=== PATIENT | female | born 1945 | race Caucasian/White ===

== ENCOUNTER → 2016-10-01 | Outpatient (CLI) | payer OTHER | END | disposition home or self-care (01) | LOC: RAD 16:19 | DX: M19.041 Primary osteoarthritis, right hand (principal); M86.8X8 Other osteomyelitis, other site; M25.571 Pain in right ankle and joints of right foot; M25.471 Effusion, right ankle ==

== ENCOUNTER → 2016-10-15 | Outpatient (CLI) | payer OTHER ==
[2016-10-15 13:58] LABS: URINE TP/CRE RATIO 0.4 (<0.21)
== END | disposition home or self-care (01) ==
LOC: US 10:30 → LAB 10:56 → US 10:56
PROVIDERS: Nurse Practitioner Family
DX: I12.9 Hypertensive chronic kidney disease with stage 1 through stage 4 chronic kidney disease, or unspecified chronic kidney disease (principal); E11.22 Type 2 diabetes mellitus with diabetic chronic kidney disease; E11.69 Type 2 diabetes mellitus with other specified complication; N18.3 Chronic kidney disease, stage 3 (moderate); M86.141 Other acute osteomyelitis, right hand; L03.019 Cellulitis of unspecified finger; R80.9 Proteinuria, unspecified; I71.4 Abdominal aortic aneurysm, without rupture; R05 Cough

== ENCOUNTER → 2016-11-01 | Outpatient (CLI) | payer OTHER | END | disposition home or self-care (01) | LOC: MAMMO 11:42 | DX: Z12.31 Encounter for screening mammogram for malignant neoplasm of breast (principal) ==

== ENCOUNTER → 2016-12-12 | Outpatient (CLI) | payer OTHER | END | disposition home or self-care (01) | LOC: MRI 10:00 | DX: Z53.9 Procedure and treatment not carried out, unspecified reason (principal) ==

== ENCOUNTER → 2017-03-20 | Day surgery (SDC) | payer OTHER ==
[~2017-03-20] VITALS: Ht 160 cm; Wt 103.4 kg
[~2017-03-20] MED LIST: ATORVASTATIN CA20 M1 PO; CLOPIDOGREL75 MG PO; DILTIAZEM 24HR300 MG PO; TRULICITY1.5 MG/0.5 SC; VITAMIN B125000 MCG PO; VITAMIN D31000 UNI1 PO
--- NOTE | ~2017-03-20 | O ---
[place], [place] OPERATIVE NOTE NAME: LUCIUS ALAN UNIT #: [id number] ROOM: DOCTOR: TRISHA SAWYER MD BIRTHDATE: [birth year] DOS: 03/20/2017 GASTROENDOSCOPIC REPORT CHIEF COMPLAINT: The patient is a 72-year-old who was presented with chief complaint of colonic screening. ALLERGIES: No known medication. FAMILY HISTORY: Noncontributory. PAST SURGICAL HISTORY: Appendectomy, knee, gallbladder, hemorrhoid. PAST MEDICAL HISTORY: Diabetes mellitus, hypercholesterolemia, hypertension. SOCIAL HISTORY: Smoker, nonalcohol consumer. PROCEDURE: Today's procedure part of investigation is colonoscopy and snare polypectomy. PREMEDICATION: Versed and Diprivan. SCOPE: Olympus folding colonoscope 10L video. REPORT: After putting the patient in left lateral position and application of lubricant to the scope, the scope was introduced; thereafter, under direct visualization, advanced through the length of colon without difficulty. Three polypoid lesion from sigmoid colon. Three polypoid lesion from hepatic flexure with a snare was polypectomized. Samples recovered. Base of cecum explored, some retained liquid stool throughout the length of colon was identified. Air was suctioned out. The patient was extubated, tolerated procedure well. IMPRESSION: Multiple colonic polyp, status post snare polypectomy of 6 polyps. PLAN AND DISCUSSION: This patient requires to remain on colonic follow up in future until assuring that there is no residual polyps. Follow up routinely. Otherwise, with you in office with us p.r.n. in GI clinic. Thank you very much indeed for your kind referral. [place], [place] OPERATIVE NOTE NAME: LUCIUS ALAN UNIT #: [id number] ROOM: DOCTOR: TRISHA SAWYER MD BIRTHDATE: [birth year] TRISHA SAWYER MD CM:OPRECORD:OPERATIVE NOTE [id number] BASSAM SAWYER MD 03/20/17 1113 interface
[2017-03-20 08:21] VITALS: BP 175/82
[2017-03-20 10:05] VITALS: BP 145/61
[2017-03-20 10:20] VITALS: BP 141/63
[2017-03-20 10:35] VITALS: BP 105/61
== END ==
LOC: SDC 03-18 10:15
DX: Z12.11 Encounter for screening for malignant neoplasm of colon (principal); D12.3 Benign neoplasm of transverse colon; K63.5 Polyp of colon; E11.22 Type 2 diabetes mellitus with diabetic chronic kidney disease; I12.9 Hypertensive chronic kidney disease with stage 1 through stage 4 chronic kidney disease, or unspecified chronic kidney disease; N18.3 Chronic kidney disease, stage 3 (moderate); F17.210 Nicotine dependence, cigarettes, uncomplicated; Z96.652 Presence of left artificial knee joint; Z79.899 Other long term (current) drug therapy; E66.01 Morbid (severe) obesity due to excess calories; Z98.890 Other specified postprocedural states; Z90.49 Acquired absence of other specified parts of digestive tract; E78.00 Pure hypercholesterolemia, unspecified

== ENCOUNTER → 2017-04-09 | Outpatient (CLI) | payer OTHER | END | disposition home or self-care (01) | LOC: US 09:30 | DX: Z13.0 Encounter for screening for diseases of the blood and blood-forming organs and certain disorders involving the immune mechanism (principal); I71.4 Abdominal aortic aneurysm, without rupture; K76.0 Fatty (change of) liver, not elsewhere classified; R93.8 Abnormal findings on diagnostic imaging of other specified body structures; Z90.49 Acquired absence of other specified parts of digestive tract ==

== ENCOUNTER → 2018-04-04 | Outpatient (CLI) | payer OTHER ==
[2018-04-05 07:07] LABS: HEPATITIS B SURFACE AG Negative (Negative); HEPATITIS C VIRUS ANTIBODY <0.1 s/co (0.0-0.9)
== END | disposition home or self-care (01) ==
LOC: US 09:30 → LAB 09:41
PROVIDERS: Nurse Practitioner Family
DX: I71.4 Abdominal aortic aneurysm, without rupture (principal); K76.0 Fatty (change of) liver, not elsewhere classified; R94.5 Abnormal results of liver function studies; Z90.49 Acquired absence of other specified parts of digestive tract

== ENCOUNTER 2020-01-20 00:50 | Emergency (ER) | payer MEDICARE, MEDICAID ==
[~2020-01-20] VITALS: Ht 162.5 cm; Wt 92.1 kg
[2020-01-20 02:12] LABS: BILIRUBIN Negative (Negative); BLOOD Negative (Negative); CLARITY Clear (Clear); COLOR Yellow (Yellow); GLUCOSE Negative (Negative); KETONE Negative (Negative); LEUKO ESTERASE Trace (Negative); NITRITE Negative (Negative); SPECIFIC GRAVITY 1.015 (1.001-1.030); UROBILINOGEN 0.2 E.U./dl (0.0-1.0)
[2020-01-20 02:12] LABS: BASO # 0.1 10*3/uL (0.0-0.1); BASO % 0.7 % (0.0-1.0); EOS # 0.2 10*3/uL (0.0-0.4); EOS % 2.3 % (1.0-4.0); HEMATOCRIT 51.5 % (37.0-47.0); LYMPH # 2.1 10*3/uL (1.3-4.4); LYMPH % 21.3 % (27.0-41.0); MEAN CORPUSCULAR HGB 29.2 pg (27.0-31.0); MEAN PLATELET VOLUME 10.6 fl (9.6-12.3); MONO # 0.6 10*3/uL (0.1-1.0); MONO % 5.7 % (3.0-9.0); NEUT # 6.9 10*3/uL (2.3-7.9); NEUT % 69.7 % (47.0-73.0); PLATELET COUNT AUTOMATED 292 10*3/uL (130-400); RED BLOOD COUNT 5.66 10*6/uL (4.10-5.10); RED CELL DISTRI WIDTH 13.8 % (0-14.5); WHITE BLOOD COUNT 9.9 10*3/uL (4.8-10.8)
[2020-01-20 02:37] LABS: ALBUMIN 3.8 gm/dl (3.1-4.5); ALKALINE PHOSPHATASE 111 U/L (45-117); BUN 12 mg/dl (7-24); CHLORIDE 105 mmol/L (98-107); CREATININE 0.92 mg/dL (0.55-1.02); LIPASE 216 U/L (73-393); POTASSIUM 3.7 mmol/L (3.5-5.1); SGOT/AST 27 IU/L (3-35); SGPT/ALT 38 U/L (12-78); SODIUM 140 mmol/L (136-145); TOTAL PROTEIN 8.2 gm/dL (6.4-8.2)
[2020-01-20 02:46] LABS: BACTERIA TRACE; HYALINE CAST 0-2; RBC 0-2 rbc/hpf (0-2)
[2020-01-20] MEDS ORDERED: TYLENOL325 M1 PO (10:05)
== END 2020-01-20 10:42 | disposition home or self-care (01) ==
LOC: ED 00:50
PROVIDERS: Emergency Medicine
DX: I71.4 Abdominal aortic aneurysm, without rupture (principal); I48.91 Unspecified atrial fibrillation; I12.9 Hypertensive chronic kidney disease with stage 1 through stage 4 chronic kidney disease, or unspecified chronic kidney disease; E11.22 Type 2 diabetes mellitus with diabetic chronic kidney disease; N18.30 Chronic kidney disease, stage 3 unspecified; Z79.899 Other long term (current) drug therapy

== ENCOUNTER 2020-01-21 17:08 | Emergency (ER) | payer MEDICARE, MEDICAID ==
[~2020-01-21] VITALS: Ht 157.4 cm; Wt 90.7 kg
[~2020-01-21 17:08] MED LIST changes: +TYLENOL325 M1 PO
== END 2020-01-21 18:17 | disposition expired ==
LOC: ED 17:08
DX: I71.4 Abdominal aortic aneurysm, without rupture (principal); I46.9 Cardiac arrest, cause unspecified; Z79.899 Other long term (current) drug therapy